=== PATIENT | male | born 1955 | race Two or more races ===

== ENCOUNTER 2024-11-16 01:08 | Inpatient (IN) | payer OTHER ==
[~2024-11-16] VITALS: Ht 167.6 cm; Wt 85.0 kg
[2024-11-16 01:00] VITALS: BP 138/75; PULSE 76; RESP 18; TEMP 97.9; O2SAT 98
[2024-11-16 01:30] VITALS: PULSE 85; RESP 23; O2SAT 98
[2024-11-16 01:55] LABS: Urine Bacteria None Seen /hpf (None Seen)
[2024-11-16] MEDS: ONDANSETRON HCL 4 MG/2 ML VIAL IV ONE (02:08)
[2024-11-16] MEDS: SODIUM CHLORIDE 0.9% 1,000 ML IV ONE ×2 (02:08→06:28)
[2024-11-16 02:11] LABS: Urine Blood 3+ /uL (Negative); Urine Clarity Turbid (Clear); Urine Color Light-Brown (Yellow); Urine Mucus FEW (None Seen); Urine Protein, UAD 2+ (Negative); Urine Squamous Epithelial Cell None Seen /hpf (<5); Urine Urobilinogen Normal (Negative); Urine WBC 45 /HPF (0-3); Urine pH 5.5 (5.0-9.0)
[2024-11-16 02:11] LABS: Basophils # (auto) 0.1 10 ^3/uL (0-0.2); Basophils % (auto) 1.1 % (0.0-2.0); Eosinophils # (auto) 0.1 10 ^3/uL (0-0.8); Eosinophils % (auto) 1.2 % (0.0-7.0); Hematocrit 29.3 % (41.0-53.0); Hemoglobin 9.7 g/dL (13.5-17.5); Lymphocytes # (auto) 1.1 10 ^3/uL (0.4-5.4); Lymphocytes % (auto) 9.9 % (10.0-50.0); Mean Corpuscular Hemoglobin 29.8 pg (28.0-32.0); Mean Corpuscular Hgb Conc. 33.2 g/dL (32.0-36.0); Mean Corpuscular Volume 89.6 fL (80.0-100.0); Monocytes % (auto) 9.4 % (0.0-12.0); Neutrophils # (auto) 8.4 10 ^3/uL (1.6-8.6); Neutrophils % (auto) 78.4 % (37.0-80.0); Platelet Count (auto) 279 10^3/uL (140-450); Red Blood Cells 3.27 10^6/uL (4.5-5.90); White Blood Cell 10.7 10^3/uL (4.4-10.8)
[2024-11-16 02:24] LABS: Potassium 4.4 mmol/L (3.5-5.1); Sodium 140 mmol/L (136-145)
[2024-11-16 02:25] LABS: Anion Gap 14 (5-15); Carbon Dioxide 19 mmol/L (20-31); Chloride 107 mmol/L (98-107)
[2024-11-16 02:30] LABS: BUN/Creatinine Ratio 10.1 (10.0-20.0)
[2024-11-16 02:31] LABS: Blood Urea Nitrogen 49 mg/dL (9-23); Glucose 242 mg/dL (74-106)
--- NOTE | 2024-11-16 03:09 | ED.PDOC ---
History of Present Illness HPI Comments 68 y/o obese M is BIBA from [facility] for obstructing renal stone in left ureter. Per EMS report, patient was seen at other facility, due to ongoing 1x week left-flank pain, where he was found with a obstructing 3mm stone via CT scan. Transferred for higher level of care. Patient, at time of assessment, comments on current Figueroa catheter placement following urine retention onset s/p colostomy bag removal at [facility] on 10/25/24. Chief Complaint: Flank Pain Time Seen by MD: 01:30 Reviewed Notes: Nurses Notes, Speech And Language Tutor Notes, Medications, Allergies Allergies: Coded Allergies: Fentanyl (Unverified Allergy, Unknown, 11/16/24) Latex (Verified Allergy, Unknown, 11/16/24) Morphine (Unverified Allergy, Unknown, 11/16/24) Sulfamethoxazole w/Trimethoprim (Unverified Allergy, Unknown, 11/16/24) Information Source: Patient, Transfer Record, Emergency Med Personnel Mode of Arrival: EMS Severity: Moderate Timing: Days Duration: Since onset Prehospital treatment: 12 Lead EKG, Bow Maker Machine Tender Past Medical History PAST MEDICAL HISTORY: Anemia, CKF (stage IV), CVA, DM (type II ), HTN, PUD Past Medical History (Other): hypokalemia hyponatremia pancreatitis diverticulitis bowel obstruction chronic constipatin ureterolithiasis left hemiparesis Surgical History: Hernia Repair Surgical History (Other): hip surgery nerve stimulator colostomy bag reversal Figueroa catheter Family History Family History: Unknown Social History Smoker: Non-Smoker, Quit Greater Than 1 Year Alcohol: Denies ETOH Use Drugs: Denies Drug Use Lives In: Home All Other Systems: Reviewed and Negative (Comprehensive systems review obtained and negative except for what is stated in the HPI.) Physical Exam General Appearance: No Apparent Distress, Obese HEENT: Normal ENT Inspection, Pharynx Normal, TMs Normal Neck: Full Range of Motion, Non-Tender, Normal, Normal Inspection Respiratory: Chest Non-Tender, Lungs Clear, No Accessory Muscle Use, No Respiratory Distress, Normal Breath Sounds Cardiovascular: No Edema, No JVD, No Murmur, No Gallop, Normal Peripheral Pulses, Regular Rate/Rhythm Breast Exam: Deferred Gastrointestinal: No Organomegaly, Non Tender, No Pulsatile Mass, Normal Bowel Sounds, Soft Genitalia: Other (Figueroa cahteter in place) Pelvic: Deferred Rectal: Deferred Extremities: No calf tenderness, Normal capillary refill, Normal inspection, Normal range of motion, Non-tender, No pedal edema Musculoskeletal : Apperance: Normal Neurologic: Alert, softball umpire II-XII nml as Tested, No Motor Deficits, Normal Affect, Normal Mood, No Sensory Deficits Cerebellar Function: Normal Reflexes: Normal Skin: Dry, Normal Color, Warm Lymphatic: No Adenopathy Was a procedure done? Was a procedure done?: No EKG EKG : Pulse Rate (adult): 94 [place]: Normal Cardiac Rhythm: NSR Block: None Hypertrophy: None ST: Normal Differential Dx Considerations may include: obstruction renal stone, nephrolithiasis, UTI, PID, musculoskeletal pain, among others X-Ray, Labs, Meds, VS Vital Signs Date Time Temp Pulse Resp B/P (MAP) Pulse Ox O2 Delivery O2 Flow Rate FiO2 11/16/24 04:00 86 14 149/68 (95) 96 11/16/24 03:09 94 11/16/24 02:00 84 11 169/77 (107) 96 11/16/24 01:30 98.4 85 23 168/76 (106) 98 98.4 11/16/24 01:30 85 23 98 Room Air* 0 21 11/16/24 01:09 98.1 88 18 167/91 (116) 97 98.1 Lab Test 11/16/24 01:42 11/16/24 01:41 Range/Units Urine Color Light-brown Yellow Urine Clarity Turbid H Clear Urine pH 5.5 5.0-9.0 Urine Specific [place] 1.020 1.001-1.035 Urine Protein 2+ H Negative Urine Ketones Trace Negative Urine Blood 3+ H Negative /uL Urine Nitrite Negative Negative Urine Bilirubin Negative Negative Urine Urobilinogen Normal Negative mg/dL Urine Leukocyte Esterase 1+ Negative /uL Urine RBC 1987 0 - 3 /hpf Urine Microscopic WBC 45 H 0-3 /HPF Urine Squamous Epithelial Cells None seen <5 /hpf Urine Bacteria None seen None Seen /hpf Urine Mucus Few None Seen Urine Glucose 3+ H Normal mg/dL White Blood Count 10.7 4.4-10.8 10^3/uL Red Blood Count 3.27 L 4.5-5.90 10^6/uL Hemoglobin 9.7 L 13.5-17.5 g/dL Hematocrit 29.3 L 41.0-53.0 % Mean Corpuscular Volume 89.6 80.0-100.0 fL Mean Corpuscular Hemoglobin 29.8 28.0-32.0 pg Mean Corpuscular Hemoglobin Concent 33.2 32.0-36.0 g/dL Red Cell Distribution Width 14.0 11.8-14.3 % Platelet Count 279 140-450 10^3/uL Mean Platelet Volume 8.3 6.9-10.8 fL Neutrophils (%) (Auto) 78.4 37.0-80.0 % Lymphocytes (%) (Auto) 9.9 L 10.0-50.0 % Monocytes (%) (Auto) 9.4 0.0-12.0 % Eosinophils (%) (Auto) 1.2 0.0-7.0 % Basophils (%) (Auto) 1.1 0.0-2.0 % Neutrophils # (Auto) 8.4 1.6-8.6 10 ^3/uL Lymphocytes # (Auto) 1.1 0.4-5.4 10 ^3/uL Monocytes # (Auto) 1.0 0-1.3 10 ^3/uL Eosinophils # (Auto) 0.1 0-0.8 10 ^3/uL Basophils # (Auto) 0.1 0-0.2 10 ^3/uL Nucleated Red Blood Cells 0.0 % Sodium Level 140 136-145 mmol/L Potassium Level 4.4 3.5-5.1 mmol/L Chloride Level 107 98-107 mmol/L Carbon Dioxide Level 19 L 20-31 mmol/L Anion Gap 14 5-15 Blood Urea Nitrogen 49 H 9-23 mg/dL Creatinine 4.87 H 0.700-1.30 mg/dL Glomerular Filtration Rate Calc 12 >90 mL/min BUN/Creatinine Ratio 10.1 10.0-20.0 Serum Glucose 242 H 74-106 mg/dL Calcium Level 9.0 8.7-10.4 mg/dL Current Medications Medications (Trade) Dose Ordered Sig/Niranjan Route Start Time Stop Time Status Last Admin Sodium Chloride 1,000 ml @ 1,000 mls/hr Q1H ONCE IV 11/16/24 01:45 11/16/24 02:44 DC 11/16/24 02:08 Time of 1ST Reevaluation: 02:00 Reevaluation 1ST: Unchanged Patient Education/Counseling: Diagnosis, Treatment Family Education/Counseling: No Family Present Additional Information Previous visits reviewed: N/A The following tests were ordered, and results were reviewed by me: UA, CBC, BMP Additional Information was gathered from interviewing the following independent historians: EMS, Transferring provider/facility I reviewed and agreed with the following test results read by other providers: N/A I discussed treatment and results with medical personnel and: patient Departure 1 Departure Time of Disposition: 05:39 (Patient with a worsening abdominal pain and worsening GOMEZ. We will admit patient for further workup and expert consultation) Impression: Primary Impression: Flank pain Additional Impressions: Ureteral colic Hydronephrosis Qualified Codes: N13.2 - Hydronephrosis with renal and ureteral calculous obstruction CKD (chronic kidney disease) Qualified Codes: N18.9 - Chronic kidney disease, unspecified Disposition: ADMITTED INPATIENT Admit to: Med Surg Condition: Serious Critical Care Note Critical Care Time?: No Stability Stability form required: No Heart Score Heart Score: Heart Score Response (Comments) Value History N/A 0 EKG N/A 0 Age N/A 0 Risk Factors N/A 0 Troponin N/A 0 Total 0 I personally scribed for MARÍA NUR MD ([email or web address]) on 11/16/24 at 03:09. Electro nically submitted by Sachin Villatoro ([email or web address]). MARÍA NUR MD Nov 16, 2024 03:09
[2024-11-16] MEDS ORDERED: DEXTROSE (50%) 50ML SYRG IV PRN (06:15)
[2024-11-16] MEDS: TAMSULOSIN HYDROCHLORIDE 0.4 MG CAP PO ONE (06:46)
[2024-11-16] MEDS: ACCU-CHEK COMFORT CURVE STRIP VI SCH (06:47)
[2024-11-16] MEDS: InsuLIN REG 1unit/0.01ml Soln (100units/ml) SC SCH (06:48)
[2024-11-16] MEDS ORDERED: NITROGLYCERIN 0.4 MG SL TAB SL PRN (07:00)
[2024-11-16 08:00] VITALS: PULSE 58; RESP 11; O2SAT 96
[2024-11-16 08:09] LABS: Basophils # (auto) 0.1 10 ^3/uL (0-0.2); Basophils % (auto) 1.2 % (0.0-2.0); Eosinophils # (auto) 0.2 10 ^3/uL (0-0.8); Eosinophils % (auto) 2.1 % (0.0-7.0); Hematocrit 27.7 % (41.0-53.0); Hemoglobin 9.2 g/dL (13.5-17.5); Lymphocytes # (auto) 1.5 10 ^3/uL (0.4-5.4); Lymphocytes % (auto) 19.6 % (10.0-50.0); Mean Corpuscular Hemoglobin 29.6 pg (28.0-32.0); Mean Corpuscular Hgb Conc. 33.2 g/dL (32.0-36.0); Mean Corpuscular Volume 89.2 fL (80.0-100.0); Monocytes # (auto) 0.8 10 ^3/uL (0-1.3); Monocytes % (auto) 10.5 % (0.0-12.0); Neutrophils # (auto) 5.1 10 ^3/uL (1.6-8.6); Neutrophils % (auto) 66.6 % (37.0-80.0); Platelet Count (auto) 237 10^3/uL (140-450); Red Cell Distribution Width 13.7 % (11.8-14.3); White Blood Cell 7.7 10^3/uL (4.4-10.8)
[2024-11-16 08:20] LABS: Potassium 4.1 mmol/L (3.5-5.1); Sodium 141 mmol/L (136-145)
[2024-11-16 08:21] LABS: Calcium 9.2 mg/dL (8.7-10.4)
[2024-11-16] MEDS: HYDROcodone-ACET 5/325MG TAB PO PRN (08:24)
[2024-11-16 08:26] LABS: BUN/Creatinine Ratio 10.3 (10.0-20.0)
[2024-11-16 08:30] LABS: Anion Gap 12 (5-15); Blood Urea Nitrogen 48 mg/dL (9-23); Carbon Dioxide 19 mmol/L (20-31); Chloride 110 mmol/L (98-107)
[2024-11-16] MEDS ORDERED: HYDROcodone-ACET 10/325MG TAB PO PRN (08:45)
[2024-11-16 08:49] LABS: Glucose 280 mg/dL (74-106)
[2024-11-16] MEDS: ONDANSETRON HCL 4 MG/2 ML VIAL IV PRN (10:24)
[2024-11-16] MEDS: KETOROLAC TROMETH 30 MG/ML 1ML VIAL IV PRN (10:26)
[2024-11-16] MEDS: amLODIPine BESYLATE 5 MG TAB PO SCH (10:29)
[2024-11-16] MEDS: FINASTERIDE 5 MG TAB PO SCH (10:29)
[2024-11-16] MEDS: cefTRIAXone 1GM/50ML D5W 50 ML IV SCH (10:29)
[2024-11-16] MEDS: HYDROmorphone HCL 2 MG/ML VL/or syr IV PRN (10:29)
--- NOTE | 2024-11-16 11:59 | DVHINCON2 ---
Date of service: Nov 16, 2024 Referring Physician ER MD Reason for Consultation ureteral stone History of Present Illness History Source: Patient, RN Notes, MD Notes Exam Limitations: No limitations HPI 68 y/o obese M hx of CVA, colon cancer, CKD IV and DMII was BIBA from [facility] for obstructing renal stone in left ureter. Per EMS report, patient was seen at other facility, due to ongoing 1x week left-flank pain, where he was found with a obstructing 3mm left mid ureteral stone via CT scan. Transferred for higher level of care due to no urology coverage in [facility]. Patient, at time of assessment, comments on current Figueroa catheter placement following urine retention onset s/p colostomy reversal at [facility] on 10/25/24. He is seen in ER bed 17 in moderate distress with severe left flank and back pain, intractable nausea. He has been NPO since last night. He is not taking anticoagulants. Past Medical History Central Nervous System: CVA Smoker: No Hx (Negative) Alocohol: None Drugs: None Domestic Violence: Neg Review of Systems Constitutional: Fever, Sweats Gastrointestinal: Nausea, Vomiting, Abdominal Pain Genitourinary: Retention, Pain H&P Exam Vital Signs Vital Signs Date Time Temp Pulse Resp B/P (MAP) Pulse Ox O2 Delivery O2 Flow Rate FiO2 11/16/24 10:29 88 22 167/50 11/16/24 08:00 96 Nasal Cannula* 2 28 11/16/24 08:00 97.8 97.8 General Appeara: Well developed, Well nourished, Normal Appearance, Obese, Moderate distress Pulmonary/Respiratory: Normal inspection, Normal breath sounds, Chest non-tender, Lungs clear Cardiovascular/Chest: Normal inspection, Regular rate, Normal Rhythm Abdominal Exam: Normal bowel sounds, Soft, No tenderness, No hepatospenomegaly, No masses Abdominal Pain Onset Location: Flank Rectal Exam: Deferred Back Exam: Left CVA tenderness Male Genital Exam: Normal genitalia Neuro/Mental St: Alert, Oriented Appearance: Appropriate appearance, Appropriate insight Eye contact/ Speech: Cooperative, Good eye contact, Normal speech Skin Exam: Normal inspection, Normal color, Warm/dry Labs/Xrays Labs Test 11/16/24 07:19 11/16/24 06:35 11/16/24 01:42 Range/Units White Blood Count 7.7 # 4.4-10.8 10^3/uL Red Blood Count 3.10 L 4.5-5.90 10^6/uL Hemoglobin 9.2 L 13.5-17.5 g/dL Hematocrit 27.7 L 41.0-53.0 % Mean Corpuscular Volume 89.2 80.0-100.0 fL Mean Corpuscular Hemoglobin 29.6 28.0-32.0 pg Mean Corpuscular Hemoglobin Concent 33.2 32.0-36.0 g/dL Red Cell Distribution Width 13.7 11.8-14.3 % Platelet Count 237 140-450 10^3/uL Mean Platelet Volume 8.9 6.9-10.8 fL Neutrophils (%) (Auto) 66.6 37.0-80.0 % Lymphocytes (%) (Auto) 19.6 10.0-50.0 % Monocytes (%) (Auto) 10.5 0.0-12.0 % Eosinophils (%) (Auto) 2.1 0.0-7.0 % Basophils (%) (Auto) 1.2 0.0-2.0 % Neutrophils # (Auto) 5.1 1.6-8.6 10 ^3/uL Lymphocytes # (Auto) 1.5 0.4-5.4 10 ^3/uL Monocytes # (Auto) 0.8 0-1.3 10 ^3/uL Eosinophils # (Auto) 0.2 0-0.8 10 ^3/uL Basophils # (Auto) 0.1 0-0.2 10 ^3/uL Nucleated Red Blood Cells 0.0 % Sodium Level 141 136-145 mmol/L Potassium Level 4.1 3.5-5.1 mmol/L Chloride Level 110 H 98-107 mmol/L Carbon Dioxide Level 19 L 20-31 mmol/L Anion Gap 12 5-15 Blood Urea Nitrogen 48 H 9-23 mg/dL Creatinine 4.66 H 0.700-1.30 mg/dL Glomerular Filtration Rate Calc 13 >90 mL/min BUN/Creatinine Ratio 10.3 10.0-20.0 Serum Glucose 280 H 74-106 mg/dL Calcium Level 9.2 8.7-10.4 mg/dL POC Glucose 285 H 70-106 mg/dl Urine Color Light-brown Yellow Urine Clarity Turbid H Clear Urine pH 5.5 5.0-9.0 Urine Specific [place] 1.020 1.001-1.035 Urine Protein 2+ H Negative Urine Ketones Trace Negative Urine Blood 3+ H Negative /uL Urine Nitrite Negative Negative Urine Bilirubin Negative Negative Urine Urobilinogen Normal Negative mg/dL Urine Leukocyte Esterase 1+ Negative /uL Urine RBC 1987 0 - 3 /hpf Urine Microscopic WBC 45 H 0-3 /HPF Urine Squamous Epithelial Cells None seen <5 /hpf Urine Bacteria None seen None Seen /hpf Urine Mucus Few None Seen Urine Creatinine 156.22 H 30.0-125.0 mg/dL Urine Glucose 3+ H Normal mg/dL Assessment/Plan Problem List: (1) Hydronephrosis (2) Ureteral colic (3) Flank pain (4) CKD (chronic kidney disease) Plan expulsive measures aggressive fluids nephrology consult pending pain meds prn treat infection renal US - if hydro persistent or worsened consult IR for left PCN placement Plan discussed with: Patient, Other PILAR ROSARIO NP Nov 16, 2024 11:59
--- NOTE | 2024-11-16 12:02 | DVHCONRES ---
Date Seen: Nov 16, 2024 Resident Creating Document: PUJA PHILLIPS RESIDENT Referring Physician Sol Olson MD Reason for Consultation GOMEZ on CKD stage 4 History of Present Illness This is 68-year-old male with past medical history of CVA, colon cancer status post colostomy reversal, CKD stage 4, type 2 diabetes mellitus transferred from [facility] for obstructing stone renal stone in left ureter. According to the patient he has left colic pain since Friday associated with nausea and vomiting went to [facility], later diagnosed with obstructing ureteral stone and there was no urologist there thats the reason to transfer to the higher level of care to [facility] for further assessment and management of obstructing renal stone. He also So mentioned that last month on 10/25/2024 he had colostomy reversal at [facility] and the postoperative period was uneventful . Patient was seen and examined on the bedside. He is alert oriented x3. Complaint of left colic pain, nausea and vomiting multiple times since morning. Allergies: Coded Allergies: Fentanyl (Unverified Allergy, Unknown, 11/16/24) Latex (Verified Allergy, Unknown, 11/16/24) Morphine (Unverified Allergy, Unknown, 11/16/24) Sulfamethoxazole w/Trimethoprim (Unverified Allergy, Unknown, 11/16/24) Current Medications Current Medications Medications (Trade) Dose Ordered Sig/Niranjan Route PRN Reason Start Time Stop Time Status Last Admin Ondansetron HCl (Zofran) 4 mg Q6HPRN PRN IV NAUSEA / VOMITING 11/16/24 06:15 11/16/24 10:24 Acetaminophen/ Hydrocodone Bitart ([place] 5/325MG Tab) 1 tab Q6HPRN PRN PO SEVERE PAIN (7-10 PAIN SCALE) 11/16/24 06:15 11/16/24 08:39 DC 11/16/24 08:24 Ceftriaxone Sodium 50 ml @ 100 mls/hr DAILY@09 IV 11/16/24 09:00 11/16/24 11:35 DC 11/16/24 10:29 Hydralazine HCl (Apresoline Injection) 10 mg Q6HP PRN IV SBP>150 11/16/24 06:15 Diagnostic Test (Pha) (Accu-Chek Comfort Curve T) 1 strip ACHS 11/16/24 07:00 11/16/24 06:47 Insulin Human Regular (InsuLIN R) ACHS SC 11/16/24 07:00 11/16/24 06:48 Dextrose 50 ml UD PRN IV Blood Sugar LESS THAN 60 11/16/24 06:15 Tamsulosin HCl (Flomax) 0.4 mg QPM PO 11/17/24 18:00 Finasteride (Proscar Tablet) 5 mg DAILY PO 11/16/24 10:00 11/16/24 10:29 Nitroglycerin (Ntrostat Sublingual) 0.4 mg Q5MINP PRN SL FOR CHEST PAIN 11/16/24 07:00 Amlodipine Besylate (Norvasc Tablet) 5 mg DAILY PO 11/16/24 10:00 11/16/24 10:29 Pantoprazole Sodium (Protonix Tablet) 40 mg DAILY@0600 PO 11/17/24 06:00 Atorvastatin Calcium (Lipitor) 40 mg HS PO 11/16/24 22:00 Acetaminophen/ Hydrocodone Bitart ([place] 10/325MG Tab) 1 tab Q6HP PRN PO SEVERE PAIN (7-10 PAIN SCALE) 11/16/24 08:45 Ketorolac Tromethamine (Toradol Injection) 30 mg Q8HPRN PRN IV MODERATE PAIN (4-6 PAIN SCALE) 11/16/24 10:00 11/21/24 09:59 11/16/24 10:26 Hydromorphone HCl (Dilaudid Injection) 0.5 mg Q3HPRN PRN IV SEVERE PAIN (7-10 PAIN SCALE) 11/16/24 10:00 11/16/24 10:29 Cefepime HCl 50 ml @ 12.5 mls/hr DAILY IV 11/17/24 10:00 UNV Metronidazole 100 ml @ 100 mls/hr Q8HR IV 11/16/24 14:00 Review of Systems Constitutional: No: Fever, Chills, Sweats, Weakness, Malaise, Other Eyes: No: Pain, Vision change, Conjunctivae inflammation, Eyelid inflammation, Other, Redness ENT: No: Ear pain, Ear discharge, Nose pain, Nose discharge, Nose congestion, Mouth pain, Mouth swelling, Throat pain, Throat swelling, Other Respiratory: Shortness of breath, improving No: Cough, Dry,Wheezing, Hemoptysis, Pleuritic Pain, Sputum, Wheezing, Other Cardiovascular: No: Chest Pain, Palpitations, Orthopnea, Paroxysmal Noc. Dyspnea, Edema, Lt Headedness, Other Gastrointestinal: Nausea, Vomiting, Abdominal Pain, No Diarrhea, Constipation, Melena, Hematochezia, Other Musculoskeletal: No: other, neck pain, shoulder pain, arm pain, back pain, hand pain, leg pain, foot pain Neurological:; No: Weakness, Numbness, Incoordination, Change in speech, Confusion, Seizures Vital Signs Vital Signs Date Time Temp Pulse Resp B/P (MAP) Pulse Ox O2 Delivery O2 Flow Rate FiO2 11/16/24 10:59 99 15 135/59 11/16/24 10:01 99 11/16/24 08:00 Nasal Cannula* 2 28 11/16/24 08:00 97.8 97.8 Physical Exam Physical examination: General Appearance: Alert, Oriented X3, Cooperative, No acute distress HEENT: Atraumatic, PERRLA, EOMI, Mucous membrane moist/pink Respiratory: Clear to auscultation, Normal air movement Cardiovascular: Regular rate, Normal S1, Normal S2, No murmurs, no chest wall tenderness Abdominal: Normal bowel sounds, Soft, mild tenderness on the lt loin, No hepatospenomegaly, No masses Extremities: No clubbing, No cyanosis, No edema, Normal pulses, No tenderness/swelling Skin: No rashes, No breakdown, No significant lesion Neuro: Normal speech, Strength at 5/5 X4 ext, Normal tone, Sensation intact, grossly intact cranial nerves. Psych/Mental Status: Mental status NL, Mood NL Labs/Diagnostic Data Labs Test 11/16/24 07:19 11/16/24 06:35 11/16/24 01:42 Range/Units White Blood Count 7.7 # 4.4-10.8 10^3/uL Red Blood Count 3.10 L 4.5-5.90 10^6/uL Hemoglobin 9.2 L 13.5-17.5 g/dL Hematocrit 27.7 L 41.0-53.0 % Mean Corpuscular Volume 89.2 80.0-100.0 fL Mean Corpuscular Hemoglobin 29.6 28.0-32.0 pg Mean Corpuscular Hemoglobin Concent 33.2 32.0-36.0 g/dL Red Cell Distribution Width 13.7 11.8-14.3 % Platelet Count 237 140-450 10^3/uL Mean Platelet Volume 8.9 6.9-10.8 fL Neutrophils (%) (Auto) 66.6 37.0-80.0 % Lymphocytes (%) (Auto) 19.6 10.0-50.0 % Monocytes (%) (Auto) 10.5 0.0-12.0 % Eosinophils (%) (Auto) 2.1 0.0-7.0 % Basophils (%) (Auto) 1.2 0.0-2.0 % Neutrophils # (Auto) 5.1 1.6-8.6 10 ^3/uL Lymphocytes # (Auto) 1.5 0.4-5.4 10 ^3/uL Monocytes # (Auto) 0.8 0-1.3 10 ^3/uL Eosinophils # (Auto) 0.2 0-0.8 10 ^3/uL Basophils # (Auto) 0.1 0-0.2 10 ^3/uL Nucleated Red Blood Cells 0.0 % Sodium Level 141 136-145 mmol/L Potassium Level 4.1 3.5-5.1 mmol/L Chloride Level 110 H 98-107 mmol/L Carbon Dioxide Level 19 L 20-31 mmol/L Anion Gap 12 5-15 Blood Urea Nitrogen 48 H 9-23 mg/dL Creatinine 4.66 H 0.700-1.30 mg/dL Glomerular Filtration Rate Calc 13 >90 mL/min BUN/Creatinine Ratio 10.3 10.0-20.0 Serum Glucose 280 H 74-106 mg/dL Calcium Level 9.2 8.7-10.4 mg/dL POC Glucose 285 H 70-106 mg/dl Urine Color Light-brown Yellow Urine Clarity Turbid H Clear Urine pH 5.5 5.0-9.0 Urine Specific [place] 1.020 1.001-1.035 Urine Protein 2+ H Negative Urine Ketones Trace Negative Urine Blood 3+ H Negative /uL Urine Nitrite Negative Negative Urine Bilirubin Negative Negative Urine Urobilinogen Normal Negative mg/dL Urine Leukocyte Esterase 1+ Negative /uL Urine RBC 1987 0 - 3 /hpf Urine Microscopic WBC 45 H 0-3 /HPF Urine Squamous Epithelial Cells None seen <5 /hpf Urine Bacteria None seen None Seen /hpf Urine Mucus Few None Seen Urine Creatinine 156.22 H 30.0-125.0 mg/dL Urine Glucose 3+ H Normal mg/dL Assessment Assessment: # GOMEZ on CKD stage IV likely hemodynamically mediated/VMN # Chronic Kidney Disease stage [address] Dockery # Left hydronephrosis due to obstructing renal stone # Renal colic due to obstructing renal stone # Bilateral renal calculus # History of colon cancer, status post colostomy reversal # metabolic acidosis # diabetes mellitus type 2 # hyperglycemia # anemia of chronic kidney disease Plan/Recommendation Plan: - Renal ultrasound showed nonobstructing right renal stone and mild left hydronephrosis - GOMEZ superimposed on CKD likely hemodynamically mediated FENA 1.1% - IV 1/2 NS with sodium bicarb 50 mEq/L @ 75 mL/hours - Continue tamsulosin 0.4 mg p.o. at q.p.m. and finasteride 5 mg daily - Control infection as per primary - Strict I&O - insulin sliding scale - Avoid nephrotoxic medication - Monitor BMP - Will follow the patient Plan discussed with Dr. Villanueva Patient seen and examined by myself with the medicine resident today on rounds. I agree with her assessment and plan Plan discussed with: Patient, Other (Rn) PUJA PHILLIPS RESIDENT Nov 16, 2024 12:02 KAR VILLANUEVA MD Nov 16, 2024 14:54
[2024-11-16] MEDS: MANNITOL FTV 25% 12.5 GM/50 ML 50 ML IV ONE (12:07)
--- NOTE | 2024-11-16 12:27 | DVH ---
INDICATION: hydronephrosis TECHNIQUE: Multiple real-time sonographic images of the kidneys and bladder were obtained. COMPARISON: None FINDINGS: The right kidney measures 10.3 cm in length, which is normal in size. There is increased ec hogenicity of the right kidney. No hydronephrosis. There is a nonobstructive right renal stone measur ing 0.6 cm. The left kidney measures 11.7 cm in length, which is normal in size. There is increased echogenicity of the left kidney. Possible trace hydronephrosis. The urinary bladder is contracted with Figueroa catheter. IMPRESSION: Nonobstructive right renal stone measuring 0.5 cm. Possible trace left hydronephrosis. Echogenic linda ateral kidneys suggestive of chronic medical renal disease.
[2024-11-16] MEDS: metroNIDAZOLE 500MG/100ML 100 ML IV SCH (14:19)
[2024-11-16] MEDS: SODIUM CHLORIDE 0.9% 1,000 ML IV SCH (14:45)
--- NOTE | 2024-11-16 14:48 | DVH ---
EXAM: XY CHEST PORTABLE Indication: Rule out CHF Technique: Single frontal view of the chest was obtained Comparison: None FINDINGS: Lines and Tubes: Right chest port tip projects over the superior vena cava. Lungs: No focal consolidation. Pleura: Small left pleural effusion. No pneumothorax. Cardiomediastinal contours: Cardiomegaly. Atherosclerotic vascular calcifications of the thoracic ao rta are noted. Bones: No acute osseous abnormality. IMPRESSION: Cardiomegaly with small left pleural effusion.
[2024-11-16] MEDS: hydrALAZINE HCL 20 MG/ML VL IV PRN (15:21)
[2024-11-16] MEDS: SODIUM BICARB 50mEq/50ml Vial 50 ML in SOD CHL 0.45% 1,000 ML IV SCH (16:13)
[2024-11-16 16:32] VITALS: BP 148/81; PULSE 94; RESP 18; TEMP 97.9; O2SAT 99
--- NOTE | 2024-11-16 16:35 | DVHHP ---
ADMIT DATE: 11/16/2024 CHIEF COMPLAINT: Coming in for left flank pain. HISTORY OF PRESENT ILLNESS: This is a 68-year-old male with a significant past medical history for essential hypertension, diabetes mellitus type 2, hyperlipidemia, gastroesophageal reflux disease, chronic kidney disease stage 4, history of colon cancer stage 2B, status post resection, colostomy placement, status post colostomy reversal last month at [facility], who presents today from [facility] via transport secondary to left flank pain. The patient apparently started having left flank pain on Friday this past weekend. The patient was seen at [facility] and was diagnosed with a left mid-ureter stone and was discharged home on pain medications and oral antibiotics, which the patient is unable to share. The patient then on Friday morning started having significant pain in the left flank, associated nausea and vomiting symptoms without any chills, but having subjective fevers at home and called EMS and the patient was taken to [facility]. At that point, CT of the abdomen and pelvis was repeated and the patient was found to have again a 3 mm stone in the mid-ureter on the left side with some swelling around the left kidney and the patient was transitioned here due to unavailability of Urology at that facility. The patient's pain here seems to be well managed and controlled. The patient otherwise is no longer having nausea or vomiting symptoms. He denies any cough, phlegm, chest pain or shortness of breath. He denies any abdominal pain, diarrhea, constipation, bloody or tarry stools. He does have a Figueroa catheter which was placed apparently last month at [facility]. The patient was apparently found to have urinary retention at that time. The patient apparently was also taking at that time finasteride, Flomax and oxybutynin, which all three medications apparently were discontinued at that time. The patient otherwise has no other acute complaints. PAST MEDICAL HISTORY: Essential hypertension, diabetes mellitus type 2, hyperlipidemia, acid reflux, neuropathy, history of CVA with residual left-sided deficits, CKD stage 4, history of ureterolithiasis, and history of colon cancer stage 2B, last chemotherapy apparently in 09/2023. PAST SURGICAL HISTORY: Abdominal hernia repair, nerve stimulator placement and removal and bilateral cataract surgery. SOCIAL HISTORY: No tobacco, no alcohol, illicit drugs. MEDICATIONS AT HOME: Per medical reconciliation. MEDICATION ALLERGIES: FENTANYL, LASIX, MORPHINE, SULFAMETHOXAZOLE WITH TRIMETHOPRIM. REVIEW OF SYSTEMS: A 10-point review of systems was covered with the patient and was negative with the exception to what was present in the history of present illness. PHYSICAL EXAMINATION: VITAL SIGNS: Temperature 97.8, pulse rate 79, respiratory rate of 15, blood pressure of 152/66, pulse ox about 97% on 2 liters of nasal cannula. GENERAL: Seems to be alert and oriented x 4, not in acute distress male, sitting up in bed. HEENT: Normocephalic, atraumatic. Extraocular muscles are intact. Pupils are equally round and reactive to light and accommodations. Mucous membranes are moist. CARDIOVASCULAR: S1, S2 positive. Regular rate and rhythm. No rubs, gallops or murmurs. LUNGS: Seem to be clear to auscultation bilaterally. No wheezing, rhonchi or rales. ABDOMEN: Soft, nontender and nondistended. Positive bowel sounds. No guarding, no rebound. Mirza's punch seems to be negative bilaterally. LOWER EXTREMITIES: No lower extremity edema, clubbing or cyanosis. MUSCULOSKELETAL: The patient has 5/5 power in bilateral upper and lower extremities; however, there is a discernible difference within the left side with some weakness in comparison to the right side. NEUROLOGIC: Cranial nerve testing 2-12 overall seems to be intact. LABORATORY WORKUP: White count of 10.7, H and H of 9.7 and 29.3, platelet count of 279,000. Sodium was 140, potassium 4.4, chloride 107, carbon dioxide 19, anion gap of 14, BUN of 49, creatinine 4.87, serum glucose of 242, calcium 9 and urinalysis was also completed. It shows 3+ blood, 1+ leukocyte esterase, rbcs 1987. Urine microscopic, wbcs of 45, urine glucose of 3+. IMAGING: CT imaging completed at [facility]. Impression: * A 3 mm calculus in the left mid-ureter, which appears fairly unchanged in position. There is mild left renal pelviectasis. There is mild fat stranding surrounding the left kidney. * There is again fat stranding along the sigmoid colon. Acute sigmoid diverticulitis cannot be excluded. * Cholelithiasis. DIAGNOSES: * Left mid-pelvis obstructive uropathy with 3 mm stone. * Mzoix-vi-avlaxta kidney disease, stage 4, * Possible complicated urinary tract infection. SECONDARY DIAGNOSES: * Essential hypertension. * Diabetes mellitus type 2. PLAN: The patient will be admitted under observation to the medical/surgical floor. Consultation with Urology, Dr. Eder Betts, has been requested as well as a consultation with Nephrology, [facility], has also been requested. The patient did receive some IV fluid hydration in the ED and we will continue with IV fluids with normal saline at 150 mL/hour. The patient will be prophylactically treated with Rocephin 1 gram IV daily, the patient to be placed on Flomax 0.4 mg daily to improve excretion of the urethral stone. The patient will also be placed on a diabetic diet with a.c. and bedtime Accu-Cheks and low-dose regular insulin sliding scale, [place] 10/325 p.r.n. every 6 hours for ysosxhfb-ru-tojtde pain, Zofran 4 mg IV p.r.n. for nausea and vomiting. The patient is placed on his home Protonix 40 mg p.o. daily for acid reflux and we will switch out his rosuvastatin 40 mg a day to Lipitor 40 mg once a day for his history of hyperlipidemia. The patient is a full code. SCDs to bilateral lower extremities for DVT prophylaxis. Further recommendations will depend on the patient hospital progression. Karri Parsons MD LM/NENA/ERIC TID: [id number] RECEIPT: [id number] MTDD
[2024-11-16 19:50] VITALS: RESP 18; O2SAT 96
[2024-11-16 21:00] VITALS: BP 127/68; PULSE 97; RESP 18; TEMP 98.4; O2SAT 98
[2024-11-16] MEDS: ATORVASTATIN 20 MG TAB PO SCH (22:08)
[2024-11-17] VITALS (7 sets, daily range): BP systolic 136–167; BP diastolic 68–91; PULSE 74–92; RESP 17–19; TEMP 97.5–98.4; O2SAT 96–98
[2024-11-17] MEDS: PANTOPRAZOLE 40 MG TAB PO SCH (05:52)
[2024-11-17] MEDS: CEFEPIME 1GM/ 50ML 50 ML IV SCH (09:10)
[2024-11-17 09:47] LABS: Potassium 4.1 mmol/L (3.5-5.1); Sodium 142 mmol/L (136-145)
[2024-11-17 09:48] LABS: Anion Gap 10 (5-15); Calcium 8.9 mg/dL (8.7-10.4)
[2024-11-17 09:53] LABS: BUN/Creatinine Ratio 10.3 (10.0-20.0)
[2024-11-17] MEDS: SODIUM BICARB 50mEq/50ml Vial 50 ML in SOD CHL 0.45% 1,000 ML IV SCH (10:00)
[2024-11-17 10:05] LABS: Blood Urea Nitrogen 47 mg/dL (9-23); Carbon Dioxide 19 mmol/L (20-31); Chloride 113 mmol/L (98-107); Glucose 177 mg/dL (74-106)
--- NOTE | 2024-11-17 12:29 | DVHPN2 ---
Progress Note Date Seen: Nov 17, 2024 Resident Creating Document: PUJA PHILLIPS RESIDENT Medical Necessity Reason Pt with a Central, PICC or Fol: Yes Subjective Review of Systems This is 68-year-old male with past medical history of CVA, colon cancer status post colostomy reversal, CKD stage 4, type 2 diabetes mellitus transferred from [facility] for obstructing stone renal stone in left ureter. According to the patient he has left colic pain since Friday associated with nausea and vomiting went to [facility], later diagnosed with obstructing ureteral stone and there was no urologist there thats the reason to transfer to the higher level of care to [facility] for further assessment and management of obstructing renal stone. He also So mentioned that last month on 10/25/2024 he had colostomy reversal at [facility] and the postoperative period was uneventful . Patient was seen and examined on the bedside. He is alert oriented x3. Mentioned improved left colic pain and nausea, no vomiting since morning. Patient reports: No new complaints Other Systems: Patient seen and examined by myself today in follow-up with the medicine resident, I agree with her assessment and plan Objective vital signs Vital Sign Date Time Temp Pulse Resp B/P (MAP) Pulse Ox O2 Delivery O2 Flow Rate FiO2 11/17/24 10:00 88 19 136/68 11/17/24 08:52 98.4 96 98.4 11/17/24 08:10 Room Air* 0 21 Total Intake and Output 11/16/24 11/16/24 11/17/24 15:00 23:00 07:00 Intake Total 1000 ml 100 ml 1200 ml Output Total 250 ml 250 ml 200 ml Balance 750 ml -150 ml 1000 ml medications Current Medications Medications Dose Ordered Sig/Niranjan Route Start Time Stop Time Status Last Admin Dose Admin Ondansetron HCl 4 mg Q6HPRN PRN IV 11/16/24 06:15 11/17/24 09:18 4 MG Hydralazine HCl 10 mg Q6HP PRN IV 11/16/24 06:15 11/16/24 15:21 10 MG Diagnostic Test (Pha) 1 strip ACHS 11/16/24 07:00 11/17/24 11:48 1 STRIP Insulin Human Regular ACHS SC 11/16/24 07:00 11/17/24 11:30 4 UNITS Dextrose 50 ml UD PRN IV 11/16/24 06:15 Tamsulosin HCl 0.4 mg QPM PO 11/17/24 18:00 Finasteride 5 mg DAILY PO 11/16/24 10:00 11/17/24 09:09 5 MG Nitroglycerin 0.4 mg Q5MINP PRN SL 11/16/24 07:00 Amlodipine Besylate 5 mg DAILY PO 11/16/24 10:00 11/17/24 09:09 5 MG Pantoprazole Sodium 40 mg DAILY@0600 PO 11/17/24 06:00 11/17/24 05:52 40 MG Atorvastatin Calcium 40 mg HS PO 11/16/24 22:00 11/16/24 22:08 40 MG Acetaminophen/ Hydrocodone Bitart 1 tab Q6HP PRN PO 11/16/24 08:45 Hold Ketorolac Tromethamine 30 mg Q8HPRN PRN IV 11/16/24 10:00 11/21/24 09:59 11/16/24 10:26 30 MG Hydromorphone HCl 0.5 mg Q3HPRN PRN IV 11/16/24 10:00 11/17/24 09:09 0.5 MG Cefepime HCl 50 ml @ 12.5 mls/hr DAILY IV 11/17/24 10:00 11/17/24 09:10 12.5 MLS/HR Metronidazole 100 ml @ 100 mls/hr Q8HR IV 11/16/24 14:00 11/17/24 05:22 100 MLS/HR Sodium Bicarbonate 50 ml/ Sodium Chloride 1,050 ml @ 100 mls/hr [id number] IV 11/17/24 10:00 11/17/24 10:00 100 MLS/HR Examination Physical examination: General Appearance: Alert, Oriented X3, Cooperative, No acute distress HEENT: Atraumatic, PERRLA, EOMI, Mucous membrane moist/pink Respiratory: Clear to auscultation, Normal air movement Cardiovascular: Regular rate, Normal S1, Normal S2, No murmurs, no chest wall tenderness Abdominal: Normal bowel sounds, Soft, No tenderness, No hepatospenomegaly, No masses Extremities: No clubbing, No cyanosis, No edema, Normal pulses, No tenderness/swelling Skin: No rashes, No breakdown, No significant lesion Neuro: Normal speech, Strength at 5/5 X4 ext, Normal tone, Sensation intact, grossly intact cranial nerves. Psych/Mental Status: Mental status NL, Mood NL laboratory and microbiology Laboratory Tests 11/17/24 09:22 11/16/24 07:19 Test 11/17/24 09:22 Range/Units Serum Glucose 177 #H 74-106 mg/dL Labs and/or images reviewed: Labs reviewed by me, Image(s) reviewed by me Problem List/Assessment/Plan Problem List/Assessment/Plan Assessment: # GOMEZ on CKD stage IV likely hemodynamically mediated/VMN # Chronic Kidney Disease stage [address] Dockery # Left hydronephrosis due to obstructing renal stone # Renal colic due to obstructing renal stone # Bilateral renal calculus # History of colon cancer, status post colostomy reversal # metabolic acidosis # diabetes mellitus type 2 # Hyperglycemia # anemia of chronic kidney disease Plan/Recommendation Plan: - Kidney function slightly improved, increased urine output - Appreciate Urology consultation. - Renal ultrasound showed nonobstructing right renal stone and mild left hydronephrosis - GOMEZ superimposed on CKD likely hemodynamically mediated FENA 1.1% - IV 1/2 NS with sodium bicarb 50 mEq/L @ 75 mL/hours - Continue tamsulosin 0.4 mg p.o. at q.p.m. and finasteride 5 mg daily - Control infection as per primary - Strict I&O - insulin sliding scale - Avoid nephrotoxic medication - Monitor BMP - Will follow the patient Plan discussed with Dr. Moore Plan discussed with: Patient, Other (RN) My Orders My Orders Orders - PUJA PHILLIPS Procedure Category Date Status Time Chest Portable XY 11/16/24 Resulted 13:36 PUJA PHILLIPS Nov 17, 2024 12:29 KAR MOORE MD Nov 18, 2024 12:20
[2024-11-17 13:02] LABS: INR 1.04 (0.9-1.15); Partial Thromboplastin Time 27.6 SEC (24.5-34.5)
--- NOTE | 2024-11-17 13:33 | DVHPN2 ---
Progress Note - Dictate Date Seen: Nov 17, 2024 Has the PT tested + for MRSA If YES, has PT been informed?: No Medical Necessity Reason Pt with a Central, PICC or Fol: Yes Medical Necessity Reason Right renal stone Left ureteral stone Azotemia, creatinine 4.5 vital signs Vital Sign Date Time Temp Pulse Resp B/P (MAP) Pulse Ox O2 Delivery O2 Flow Rate FiO2 11/17/24 10:00 88 19 136/68 11/17/24 08:52 98.4 96 98.4 11/17/24 08:10 Room Air* 0 21 Total Intake and Output 11/16/24 11/16/24 11/17/24 15:00 23:00 07:00 Intake Total 1000 ml 100 ml 1200 ml Output Total 250 ml 250 ml 200 ml Balance 750 ml -150 ml 1000 ml medications Current Medications Medications Dose Ordered Sig/Niranjan Route Start Time Stop Time Status Last Admin Dose Admin Ondansetron HCl 4 mg Q6HPRN PRN IV 11/16/24 06:15 11/17/24 09:18 4 MG Hydralazine HCl 10 mg Q6HP PRN IV 11/16/24 06:15 11/16/24 15:21 10 MG Diagnostic Test (Pha) 1 strip ACHS 11/16/24 07:00 11/17/24 11:48 1 STRIP Insulin Human Regular ACHS SC 11/16/24 07:00 11/17/24 11:30 4 UNITS Dextrose 50 ml UD PRN IV 11/16/24 06:15 Tamsulosin HCl 0.4 mg QPM PO 11/17/24 18:00 Finasteride 5 mg DAILY PO 11/16/24 10:00 11/17/24 09:09 5 MG Nitroglycerin 0.4 mg Q5MINP PRN SL 11/16/24 07:00 Amlodipine Besylate 5 mg DAILY PO 11/16/24 10:00 11/17/24 09:09 5 MG Pantoprazole Sodium 40 mg DAILY@0600 PO 11/17/24 06:00 11/17/24 05:52 40 MG Atorvastatin Calcium 40 mg HS PO 11/16/24 22:00 11/16/24 22:08 40 MG Acetaminophen/ Hydrocodone Bitart 1 tab Q6HP PRN PO 11/16/24 08:45 Hold Ketorolac Tromethamine 30 mg Q8HPRN PRN IV 11/16/24 10:00 11/21/24 09:59 11/16/24 10:26 30 MG Hydromorphone HCl 0.5 mg Q3HPRN PRN IV 11/16/24 10:00 11/17/24 09:09 0.5 MG Cefepime HCl 50 ml @ 12.5 mls/hr DAILY IV 11/17/24 10:00 11/17/24 09:10 12.5 MLS/HR Metronidazole 100 ml @ 100 mls/hr Q8HR IV 11/16/24 14:00 11/17/24 05:22 100 MLS/HR Sodium Bicarbonate 50 ml/ Sodium Chloride 1,050 ml @ 100 mls/hr [id number] IV 11/17/24 10:00 11/17/24 10:00 100 MLS/HR laboratory and microbiology Laboratory Tests 11/17/24 09:22 11/16/24 07:19 Test 11/17/24 09:22 Range/Units Serum Glucose 177 #H 74-106 mg/dL Assessment/Plan Right nephrolithiasis reported to be 5 mm Left ureteral calculus, 4 mm in the mid ureteral section Patient is currently not NPO We will plan for repeat CT scan Plan for right extracorporeal shockwave lithotripsy of kidney stone, cystoscopy with left ureteral stent placement and left extracorporeal shockwave lithotripsy of the ureteral calculus Plan discussed with: Patient, Other ROMIE BURNETT MD Nov 17, 2024 13:33
--- NOTE | 2024-11-17 14:05 | DVHPN2 ---
Progress Note - Dictate Date Seen: Nov 17, 2024 Has the PT tested + for MRSA If YES, has PT been informed?: No Medical Necessity Reason Pt with a Central, PICC or Fol: Yes Subjective Patient continues to complain of significant flank pain between pain medications. Notes improvement in vomiting. vital signs Vital Sign Date Time Temp Pulse Resp B/P (MAP) Pulse Ox O2 Delivery O2 Flow Rate FiO2 11/17/24 10:00 88 19 136/68 11/17/24 08:52 98.4 96 98.4 11/17/24 08:10 Room Air* 0 21 Total Intake and Output 11/16/24 11/16/24 11/17/24 15:00 23:00 07:00 Intake Total 1000 ml 100 ml 1200 ml Output Total 250 ml 250 ml 200 ml Balance 750 ml -150 ml 1000 ml medications Current Medications Medications Dose Ordered Sig/Niranjan Route Start Time Stop Time Status Last Admin Dose Admin Ondansetron HCl 4 mg Q6HPRN PRN IV 11/16/24 06:15 11/17/24 09:18 4 MG Hydralazine HCl 10 mg Q6HP PRN IV 11/16/24 06:15 11/16/24 15:21 10 MG Diagnostic Test (Pha) 1 strip ACHS 11/16/24 07:00 11/17/24 11:48 1 STRIP Insulin Human Regular ACHS SC 11/16/24 07:00 11/17/24 11:30 4 UNITS Dextrose 50 ml UD PRN IV 11/16/24 06:15 Tamsulosin HCl 0.4 mg QPM PO 11/17/24 18:00 Finasteride 5 mg DAILY PO 11/16/24 10:00 11/17/24 09:09 5 MG Nitroglycerin 0.4 mg Q5MINP PRN SL 11/16/24 07:00 Amlodipine Besylate 5 mg DAILY PO 11/16/24 10:00 11/17/24 09:09 5 MG Pantoprazole Sodium 40 mg DAILY@0600 PO 11/17/24 06:00 11/17/24 05:52 40 MG Atorvastatin Calcium 40 mg HS PO 11/16/24 22:00 11/16/24 22:08 40 MG Acetaminophen/ Hydrocodone Bitart 1 tab Q6HP PRN PO 11/16/24 08:45 Hold Ketorolac Tromethamine 30 mg Q8HPRN PRN IV 11/16/24 10:00 11/21/24 09:59 11/16/24 10:26 30 MG Hydromorphone HCl 0.5 mg Q3HPRN PRN IV 11/16/24 10:00 11/17/24 09:09 0.5 MG Cefepime HCl 50 ml @ 12.5 mls/hr DAILY IV 11/17/24 10:00 11/17/24 09:10 12.5 MLS/HR Metronidazole 100 ml @ 100 mls/hr Q8HR IV 11/16/24 14:00 11/17/24 05:22 100 MLS/HR Sodium Bicarbonate 50 ml/ Sodium Chloride 1,050 ml @ 100 mls/hr [id number] IV 11/17/24 10:00 11/17/24 10:00 100 MLS/HR objective General appearance: No acute distress Respiratory: Lungs clear to auscultation. No wheezing, crackles Cardiovascular: Regular rate and rhythm, no murmurs. No edema Abdomen: Soft, nondistended, nontender, bowel sounds present MSK: Normal range of motion. Neuro: Alert, no neurological deficits Psych: Appropriate mood and affect. laboratory and microbiology Laboratory Tests 11/17/24 09:22 11/16/24 07:19 Test 11/17/24 09:22 Range/Units Serum Glucose 177 #H 74-106 mg/dL Assessment/Plan 1. Left Mid-Pelvis obstructive uropathy with 3mm stone 2. Acute on chronic kidney disease stage 4 3. Complicated UTI 4. Chronic Indwelling Figueroa Catheter due to urinary retention 5. History of colon cancer with colostomy reversal -Plan: -Urology consulted. Plan for right extracorporeal shockwave lithotripsy of kidney stone, cystoscopy with left ureteral stent placement and left extracorporeal shockwave lithotripsy of the ureteral calculus. -Nephrology consulted for GOMEZ on CKD. At baseline. -Continue IVF -Continue cefepime -Pain medications as per MAR -Urine cultures pending -Zofran PRN -Daily CBC and BMP -Npo at midnight -Full Code Plan discussed with: Patient JESSE TANNER Uzma CARUSO Nov 17, 2024 14:05
--- NOTE | 2024-11-17 14:37 | DVH ---
CT CT AB PEL WO CON-NO ORAL OR IV INDICATION: Left ureteral stone EXAM DATE: 11/17/2024 01:38 PM COMPARISON: 11/16/24 RADIATION DOSE: CTDIvol: 15.3 mGy, DLP: 883.29 mGy*cm PROCEDURE: Helical CT images were obtained of the abdomen and pelvis without IV contrast Sagittal and coronal reconstructions are provided. ORAL CONTRAST: None. ADDITIONAL IMAGES / REFORMATS: None All C T scans at this medical facility are performed using dose modulation techniques as appropriate to a p erformed exam including the following: Automated exposure control was utilized; adjustment of the MA and/or KV according to patient size; and use of iterative reconstruction technique. FINDINGS: LUNG BASE: Bibasilar atelectasis. LIVER: Normal. GALLBLADDER AND BILIARY TREE: Gallstone. No intra- or extrahepatic biliary ductal dilation. PANCREAS: Normal. SPLEEN: Normal. BOWEL: Mild pericolonic fat stranding at the sigmoid could be mild colitis. Normal appendix. ADRENALS: Normal. KIDNEYS AND URETER: Mild left hydronephrosis with interval descent of the left ureteral stone now in the distal left ureter. BLADDER: Figueroa. REPRODUCTIVE ORGANS: Normal. LYMPH NODES:No lymphadenopathy. PERITONEUM: No ascites or free air. No other fluid collection. VESSELS: Scattered atherosclerotic calcifications are noted. RETROPERITONEUM: Normal. ABDOMINAL WALL: Normal. BONES: Scattered osseous degenerative changes are noted. IMPRESSION: Mild left hydronephrosis with interval descent of the left ureteral stone now in the distal left uret er. Mild pericolonic fat stranding at the sigmoid could be mild colitis.
[2024-11-17] MEDS: TAMSULOSIN HYDROCHLORIDE 0.4 MG CAP PO SCH (17:21)
[2024-11-18] VITALS (9 sets, daily range): BP systolic 147–195; BP diastolic 72–96; PULSE 80–103; RESP 16–21; TEMP 97.4–98.4; O2SAT 96–100
[2024-11-18 06:04] LABS: Basophils # (auto) 0.1 10 ^3/uL (0-0.2); Eosinophils # (auto) 0.3 10 ^3/uL (0-0.8); Hemoglobin 8.1 g/dL (13.5-17.5); Monocytes # (auto) 0.9 10 ^3/uL (0-1.3)
[2024-11-18 06:07] LABS: Basophils % (auto) 1.1 % (0.0-2.0); Hematocrit 23.8 % (41.0-53.0); Lymphocytes # (auto) 1.7 10 ^3/uL (0.4-5.4); Lymphocytes % (auto) 20.2 % (10.0-50.0); Mean Corpuscular Hemoglobin 29.9 pg (28.0-32.0); Monocytes % (auto) 10.7 % (0.0-12.0); Neutrophils # (auto) 5.2 10 ^3/uL (1.6-8.6); Platelet Count (auto) 188 10^3/uL (140-450); Red Blood Cells 2.71 10^6/uL (4.5-5.90); Red Cell Distribution Width 13.5 % (11.8-14.3); White Blood Cell 8.2 10^3/uL (4.4-10.8)
[2024-11-18 06:20] LABS: Potassium 4.1 mmol/L (3.5-5.1); Sodium 143 mmol/L (136-145)
[2024-11-18 06:21] LABS: Anion Gap 10 (5-15); INR 1.06 (0.9-1.15); Prothrombin Time 11.2 sec (9.3-11.8)
[2024-11-18 06:22] LABS: Calcium 8.8 mg/dL (8.7-10.4)
[2024-11-18 06:25] LABS: Carbon Dioxide 20 mmol/L (20-31); Chloride 113 mmol/L (98-107)
[2024-11-18 06:27] LABS: Blood Urea Nitrogen 46 mg/dL (9-23); Glucose 144 mg/dL (74-106)
--- NOTE | 2024-11-18 07:06 | DVHPN2 ---
Progress Note Date Seen: Nov 18, 2024 Has the PT tested + for MRSA If YES, has PT been informed?: No Medical Necessity Reason Pt with a Central, PICC or Fol: Yes Subjective Patient reports: No new complaints Review of Systems: CVS:Normal, RESPIRATORY:Normal, :Abnormal Objective vital signs Vital Sign Date Time Temp Pulse Resp B/P (MAP) Pulse Ox O2 Delivery O2 Flow Rate FiO2 11/18/24 05:51 67 20 145/86 11/18/24 05:00 97.8 98 97.8 11/17/24 20:00 Room Air* 0 21 Total Intake and Output 11/17/24 11/17/24 11/18/24 15:00 23:00 07:00 Intake Total 150 ml 1060 ml 250 ml Output Total 202 ml 400 ml Balance 150 ml 858 ml -150 ml medications Current Medications Medications Dose Ordered Sig/Niranjan Route Start Time Stop Time Status Last Admin Dose Admin Ondansetron HCl 4 mg Q6HPRN PRN IV 11/16/24 06:15 11/17/24 23:27 4 MG Hydralazine HCl 10 mg Q6HP PRN IV 11/16/24 06:15 11/16/24 15:21 10 MG Diagnostic Test (Pha) 1 strip ACHS 11/16/24 07:00 11/18/24 06:32 1 STRIP Insulin Human Regular ACHS SC 11/16/24 07:00 11/17/24 20:55 3 UNITS Dextrose 50 ml UD PRN IV 11/16/24 06:15 Tamsulosin HCl 0.4 mg QPM PO 11/17/24 18:00 11/17/24 17:21 0.4 MG Finasteride 5 mg DAILY PO 11/16/24 10:00 11/17/24 09:09 5 MG Nitroglycerin 0.4 mg Q5MINP PRN SL 11/16/24 07:00 Amlodipine Besylate 5 mg DAILY PO 11/16/24 10:00 11/17/24 09:09 5 MG Pantoprazole Sodium 40 mg DAILY@0600 PO 11/17/24 06:00 11/18/24 05:21 40 MG Atorvastatin Calcium 40 mg HS PO 11/16/24 22:00 11/17/24 20:41 40 MG Acetaminophen/ Hydrocodone Bitart 1 tab Q6HP PRN PO 11/16/24 08:45 Hold Ketorolac Tromethamine 30 mg Q8HPRN PRN IV 11/16/24 10:00 11/21/24 09:59 11/18/24 06:31 30 MG Hydromorphone HCl 0.5 mg Q3HPRN PRN IV 11/16/24 10:00 11/18/24 05:21 0.5 MG Cefepime HCl 50 ml @ 12.5 mls/hr DAILY IV 11/17/24 10:00 11/17/24 09:10 12.5 MLS/HR Metronidazole 100 ml @ 100 mls/hr Q8HR IV 11/16/24 14:00 11/18/24 05:21 100 MLS/HR Sodium Bicarbonate 50 ml/ Sodium Chloride 1,050 ml @ 100 mls/hr [id number] IV 11/17/24 10:00 11/18/24 06:31 100 MLS/HR Examination: GENERAL:Normal, LUNGS:Normal, CVS:Normal, ABDOMEN:Normal laboratory and microbiology Laboratory Tests 11/18/24 05:03 Test 11/18/24 05:03 Range/Units Serum Glucose 144 H 74-106 mg/dL Problem List/Assessment/Plan Problem List/Assessment/Plan 1) L renal stone 2) UTI 3) CKD IV 4) Hx of colon CA plan; CT shows descent of L renal stone to distal ureter, urology to plan for ESWL and possible stent placement today, continue all supportive care, pt has known CKD IV with Cr stable at this time, will follow along, dc planning home once cleared by urology Plan discussed with: Other (n) LÓPEZ RECINOS MD Nov 18, 2024 07:06
[2024-11-18] MEDS ORDERED: LEVO500T91 PO (08:03)
--- NOTE | 2024-11-18 10:42 | DVHPN2 ---
Progress Note Date Seen: Nov 18, 2024 Resident Creating Document: PUJA PHILLIPS RESIDENT Has the PT tested + for MRSA If YES, has PT been informed?: No Medical Necessity Reason Pt with a Central, PICC or Fol: Yes Subjective Review of Systems This is 68-year-old male with past medical history of CVA, colon cancer status post colostomy reversal, CKD stage 4, type 2 diabetes mellitus transferred from [facility] for obstructing stone renal stone in left ureter. According to the patient he has left colic pain since Friday associated with nausea and vomiting went to [facility], later diagnosed with obstructing ureteral stone and there was no urologist there thats the reason to transfer to the higher level of care to [facility] for further assessment and management of obstructing renal stone. He also So mentioned that last month on 10/25/2024 he had colostomy reversal at [facility] and the postoperative period was uneventful . Patient was seen and examined on the bedside. He is alert oriented x3. Mentioned improved left colic pain and nausea, no vomiting since morning. Patient is scheduled for right extracorporeal shockwave lithotripsy of kidney stone, cystoscopy with left ureteral stent placement and left extracorporeal shockwave lithotripsy of the ureteral calculus today . Patient reports: No new complaints Other Systems: Patient seen and examined by myself today in follow-up with the medicine resident, I agree with her assessment and plan Objective vital signs Vital Sign Date Time Temp Pulse Resp B/P (MAP) Pulse Ox O2 Delivery O2 Flow Rate FiO2 11/18/24 08:57 80 21 166/87 11/18/24 08:38 98.4 99 98.4 11/17/24 20:00 Room Air* 0 21 Total Intake and Output 11/17/24 11/17/24 11/18/24 15:00 23:00 07:00 Intake Total 150 ml 1060 ml 250 ml Output Total 202 ml 400 ml Balance 150 ml 858 ml -150 ml medications Current Medications Medications Dose Ordered Sig/Niranjan Route Start Time Stop Time Status Last Admin Dose Admin Ondansetron HCl 4 mg Q6HPRN PRN IV 11/16/24 06:15 11/18/24 08:56 4 MG Hydralazine HCl 10 mg Q6HP PRN IV 11/16/24 06:15 11/16/24 15:21 10 MG Diagnostic Test (Pha) 1 strip ACHS 11/16/24 07:00 11/18/24 06:32 1 STRIP Insulin Human Regular ACHS SC 11/16/24 07:00 11/17/24 20:55 3 UNITS Dextrose 50 ml UD PRN IV 11/16/24 06:15 Tamsulosin HCl 0.4 mg QPM PO 11/17/24 18:00 11/17/24 17:21 0.4 MG Finasteride 5 mg DAILY PO 11/16/24 10:00 11/18/24 08:54 5 MG Nitroglycerin 0.4 mg Q5MINP PRN SL 11/16/24 07:00 Amlodipine Besylate 5 mg DAILY PO 11/16/24 10:00 11/18/24 08:56 5 MG Pantoprazole Sodium 40 mg DAILY@0600 PO 11/17/24 06:00 11/18/24 05:21 40 MG Atorvastatin Calcium 40 mg HS PO 11/16/24 22:00 11/17/24 20:41 40 MG Acetaminophen/ Hydrocodone Bitart 1 tab Q6HP PRN PO 11/16/24 08:45 Hold Ketorolac Tromethamine 30 mg Q8HPRN PRN IV 11/16/24 10:00 11/21/24 09:59 11/18/24 06:31 30 MG Hydromorphone HCl 0.5 mg Q3HPRN PRN IV 11/16/24 10:00 11/18/24 08:57 0.5 MG Cefepime HCl 50 ml @ 12.5 mls/hr DAILY IV 11/17/24 10:00 11/18/24 08:54 12.5 MLS/HR Metronidazole 100 ml @ 100 mls/hr Q8HR IV 11/16/24 14:00 11/18/24 05:21 100 MLS/HR Sodium Bicarbonate 50 ml/ Sodium Chloride 1,050 ml @ 100 mls/hr [id number] IV 11/17/24 10:00 11/18/24 06:31 100 MLS/HR Examination Physical examination: General Appearance: Alert, Oriented X3, Cooperative, No acute distress HEENT: Atraumatic, PERRLA, EOMI, Mucous membrane moist/pink Respiratory: Clear to auscultation, Normal air movement Cardiovascular: Regular rate, Normal S1, Normal S2, No murmurs, no chest wall tenderness Abdominal: Normal bowel sounds, Soft, No tenderness, No hepatospenomegaly, No masses Extremities: No clubbing, No cyanosis, No edema, Normal pulses, No tenderness/swelling Skin: No rashes, No breakdown, No significant lesion Neuro: Normal speech, Strength at 5/5 X4 ext, Normal tone, Sensation intact, grossly intact cranial nerves. Psych/Mental Status: Mental status NL, Mood NL laboratory and microbiology Laboratory Tests 11/18/24 05:03 Test 11/18/24 05:03 Range/Units Serum Glucose 144 H 74-106 mg/dL Labs and/or images reviewed: Labs reviewed by me, Image(s) reviewed by me Problem List/Assessment/Plan Problem List/Assessment/Plan Assessment: # GOMEZ on CKD stage IV likely hemodynamically mediated/VMN # Chronic Kidney Disease stage [address] Dockery # Left hydronephrosis due to obstructing renal stone # Renal colic due to obstructing renal stone # Bilateral renal calculus # History of colon cancer, status post colostomy reversal # metabolic acidosis # diabetes mellitus type 2 # Hyperglycemia # anemia of chronic kidney disease Plan/Recommendation Plan: - Patient is scheduled for right extracorporeal shockwave lithotripsy of kidney stone, cystoscopy with left ureteral stent placement and left extracorporeal shockwave lithotripsy of the ureteral calculus today by Dr. Betts - Kidney function slightly improved, increased urine output - Appreciate Urology consultation. - Renal ultrasound showed nonobstructing right renal stone and mild left hydronephrosis - GOMEZ superimposed on CKD likely hemodynamically mediated FENA 1.1% - IV 1/2 NS with sodium bicarb 50 mEq/L @ 75 mL/hours - Continue tamsulosin 0.4 mg p.o. at q.p.m. and finasteride 5 mg daily - Control infection as per primary - Strict I&O - insulin sliding scale - Avoid nephrotoxic medication - Monitor BMP - Will follow the patient Plan discussed with Dr. Villanueva Plan discussed with: Patient, Other PUJA PHILLIPS RESIDENT Nov 18, 2024 10:42 KAR VILLANUEVA MD Nov 18, 2024 12:21
[2024-11-18] MEDS ORDERED: MIDAZOLAM HCL 2MG/2ML 2ml VIAL (1mg/ml) ONE (16:39)
[2024-11-18] MEDS ORDERED: HYDROmorphone HCL 2 MG/ML VL/or syr ONE (16:39)
[2024-11-18] MEDS ORDERED: ETOMIDATE (2MG/ML) 20ML VIAL IV ONE (16:53)
[2024-11-18] MEDS ORDERED: KETAMINE 50mg/ML 1ml syringe ONE (17:27)
[2024-11-18] MEDS ORDERED: SUGAMMADEX 200mg/2ml Vial (100MG/ML) IV ONE (17:39)
--- NOTE | 2024-11-18 17:49 | DVHNC2 ---
Procedure - OPERATIVE REPORT Pre-op. Diagnosis: Ureteral Stone - LEFT Hydronephrosis - LEFT Flank Pain - LEFT Post-op. Diagnosis: Same as pre-op diagnosis Operation: Extracorporeal Shockwave Lithotripsy - LEFT Cystoscopy, Ureteral stent placement - LEFT Anesthesia: General Indications: Informed Consent: Options were discussed. Treatments can include conservative therapy, Extra-corporeal shockwave therapy (ESWL), Ureteroscopy with laser lithotripsy vs extraction, PCNL (percutaneous nephrolithotomy); with or without the use of Stents or retrograde pyelography. Corresponding advantages and disadvantages were also discussed. Questions were addressed. Patient wishes to proceed with left ESWL and possible cystoscopy with left ureteral stent placement. Risks and benefits of the surgery were reviewed with patient which include but are not limited to infection, bleeding, urosepsis, renal hemorrhage/hematoma formation, ureteral perforation, ureteral stricture formation, need for further surgery if stone does not break, ureteral obstruction from stone fragments, cardiac arrthymia and risks of anesthesia. Despite these risks, patient wishes to proceed with the surgery. Patient fully understood and signed the consent. Details of Procedure: Under satisfactory anesthesia, the patient was positioned on the lithotripsy table. Using fluoroscopy the left ureteral stone was localized. Starting at low energy levels, shockwave treatment was commenced. The energy level was gradually increased and stone was fragmented. Once the treatment was completed, patient was then positioned in dorsal lithotomy position, prep and draped under standard fashion and cystoscopy with a 22Fr rigid cystoscope was performed. The left ureteral orifice was cannulated with six Setswana open-ended catheter and retrograde pyelogram was performed identifying the distal ureteral calculus measuring approximately 6 mm. Next, a sensor tip guidewire and advanced into the left renal pelvis under fluroscopy. A 6x24 PL left Ureteral stent was then placed over the wire under Fluoroscopic and cystoscopic guidance. The bladder was emptied and the cystoscope was taken out. The stone was then placed onto the F2 focus and 3000 shock waves were delivered at level nine. General anesthesia was reversed, the patient was then taken off the lithotripsy table and sent to recovery room in stable condition. Specimens: None Complications: None Findings: Stone Laterality: Left Stone Location: Ureter 6 mm- DISTAL Shocks Delivered: 3000 Max Power settin Fragmentation Quality: Well Ureteral stent size & length: 6x24 PL left ureteral stent Notes: f/u 2 weeks ROMIE BURNETT MD Nov 18, 2024 17:49
--- NOTE | 2024-11-18 18:00 | DVHDS2 ---
New Physician D'charge PN Admitting Diagnosis Admitting Diagnosis L renal stone Discharge Diagnosis L renal stone s/p ESWL and stent placement Operations or Procedures L renal stone ESWL with stent placement Reason(s) For Hospitalization Surgery Hospital Course 68 M who comes to ER c/o L flank pain. CT abdomen revealed a distal L renal stone with mild hydronephrosis. He was admitted to the hospital and nephrology saw him as he has known CKD IV and her Cr was at baseline with the patient still making adequate urine. He was seen by urology and taken for L sided ESWL and stent placement. The patient tolerated the procedure well and is cleared for discharge by urology with outpt follow up, He will also see renal outp for CKD IV. He was treated with IV Abx here in hospital for possible UTI and his WBC has been normal. He will complete a PO course of Levaquin outpt renally dosed and w ill have the aforementioned outpt follow up via [facility]. Treatment Plan Discharge Condition of Discharge Good Disposition Home Discharge Instructions Diet: Cardiac 2g Na,low cholest, Renal Activity: No Restrictions, As Tolerated Medications: see med sheet Follow Up Care Follow Up/Referral: pcp Discharge Statement: "Patient was advised to return to the ER or call 911 if any headaches, dizziness, shortness of breath, chest pain, abdominal pain, bleeding, fevers, or worsening of medical condition. Patient was counseled about treatment plan, medications, possible side effects, patientverbalized understanding. All questions were answered to the best of my ability. This discharge took greater then 30 minutes in planning, reviewing documentation, counseling the patient, and discussing with other team members." LÓPEZ RECINOS MD Nov 18, 2024 18:00
[2024-11-18] MEDS ORDERED: HYDROmorphone HCL 2 MG/ML VL/or syr IV PRN (18:30)
[2024-11-18] MEDS ORDERED: FAMOTIDINE (10MG/ML) 2ML VL IV ONE (18:30)
[2024-11-18] MEDS ORDERED: ONDANSETRON HCL 4 MG/2 ML VIAL IV ONE (18:30)
== END 2024-11-18 21:12 | disposition home or self-care (01) | DRG 659 ==
LOC: EDBD 01:08 → ER 01:13 → OVERFLOW 06:49 → EAST 16:33 → OBSVTOIN 11-17 15:14
PROVIDERS: ADMIT Hospitalist; ATTEND Student in an Organized Health Care Education/Training Program
PROC: 0TF7XZZ Fragmentation in Left Ureter, External Approach (ICD-10-PCS; 2024-11-18)
PROC: BT1F1ZZ Fluoroscopy of Left Kidney, Ureter and Bladder using Low Osmolar Contrast (ICD-10-PCS; principal; 2024-11-18 16:55)
PROC: 0T778DZ Dilation of Left Ureter with Intraluminal Device, Via Natural or Artificial Opening Endoscopic (ICD-10-PCS; 2024-11-18 16:55)
DX: T83.511A Infection and inflammatory reaction due to indwelling urethral catheter, initial encounter (principal); J96.01 Acute respiratory failure with hypoxia; E87.20 Acidosis, unspecified; N13.6 Pyonephrosis; N18.4 Chronic kidney disease, stage 4 (severe); K21.9 Gastro-esophageal reflux disease without esophagitis; E11.22 Type 2 diabetes mellitus with diabetic chronic kidney disease; D63.1 Anemia in chronic kidney disease; E11.65 Type 2 diabetes mellitus with hyperglycemia; I12.9 Hypertensive chronic kidney disease with stage 1 through stage 4 chronic kidney disease, or unspecified chronic kidney disease; E11.40 Type 2 diabetes mellitus with diabetic neuropathy, unspecified; E66.9 Obesity, unspecified; E78.5 Hyperlipidemia, unspecified; Z88.1 Allergy status to other antibiotic agents; Z91.040 Latex allergy status; Z91.09 Other allergy status, other than to drugs and biological substances; Z88.5 Allergy status to narcotic agent; Z93.3 Colostomy status; Z79.899 Other long term (current) drug therapy; Z86.73 Personal history of transient ischemic attack (TIA), and cerebral infarction without residual deficits; Z87.11 Personal history of peptic ulcer disease; Z85.038 Personal history of other malignant neoplasm of large intestine; Z68.34 Body mass index [BMI] 34.0-34.9, adult
CPT/HCPCS: 36415; 71045; 74176; 76775; 80048; 81001; 82570; 82962; 84300; 85025; 85610; 85730; 86850; 86900; 86901; 96365; A4344; G0378; J1815; J1885; J2250; J2405; J3490